=== PATIENT | female | born 1955 | race Caucasian/White ===

== ENCOUNTER 2018-12-12 20:52 | Emergency (ER) | payer MEDICAID ==
[~2018-12-12] VITALS: Ht 152.4 cm; Wt 55.8 kg
[2018-12-12 22:15] VITALS: BP 111/60
--- NOTE | 2018-12-12 22:15 | NUR ---
PT BIBSELF C/O MIDDLE BACK PAIN. -TRAUMA,-HEAVY LIFTING, +LEFT FLANK PAIN -DYSURIA,-HEMATURIA, +PAIN WHILE AMBULATING. PT ON MONITOR IN BED 9. NAD NOTED. RESP EVEN AND UNLABORED. WILL CONTINUE TO MONITOR.
[2018-12-12] MEDS ORDERED: KETOROLAC TROMETHAMINE INJ 30 MG/ML VIAL IV ONE (23:00)
[2018-12-12] MEDS ORDERED: IV NS 0.9% 1,000 ML BAG IV ONE (23:00)
[2018-12-12 23:05] LABS: APPEARANCE,URINE Clear (CLEAR); BILIRUBIN,URINE Negative (NEGATIVE); BLOOD, URINE Negative Ery/uL (NEGATIVE); COLOR,URINE Yellow (YELLOW); KETONES,URINE Negative (NEGATIVE); LEUKOCYTE ESTERASE ,URINE Negative (NEGATIVE); NITRITE, URINE Negative (NEGATIVE); PH,URINE 5.5 (5.0-8.0); PROTEIN,URINE Negative (NEGATIVE); UGLUCOSE Negative (NEGATIVE)
[2018-12-12] MEDS ORDERED: KETOROLAC TROMETHAMINE INJ 30 MG/ML VIAL ONE (23:13)
[2018-12-12 23:14] LABS: BASOPHILS # (AUTO) 0.1 /CMM (0.0-0.2); EOSINOPHILS % (AUTO) 4.1 % (0.0-6.0); HEMATOCRIT 37 % (33-45); HEMOGLOBIN 12.9 g/dL (11.5-14.8); LYMPHOCYTES # (AUTO) 2.5 /CMM (0.8-4.8); LYMPHOCYTES % (AUTO) 39.8 % (20.0-44.0); MEAN CORPUSCULAR HGB CONC 35 g/dl (31.0-36.0); MEAN CORPUSCULAR VOLUME 89 fL (82-100); MONOCYTES # (AUTO) 0.4 /CMM (0.1-1.30); NEUTROPHILS % (AUTO) 48.1 % (43.0-81.0); PLATELET COUNT (AUTO) 256 /CMM (150-450); RED BLOOD CELL COUNT(AUTO) 4.13 MIL/uL (4.0-5.2); WHITE BLOOD COUNT (AUTO) 6.3 K/uL (4.3-11.0)
--- NOTE | 2018-12-12 23:20 | NUR ---
WHEELED OUT VIA [facility] FOR CT SCAN
[2018-12-12 23:23] LABS: BACTERIA,URINE Few /HPF (None Seen); RBC,URINE 0-2 /HPF (0-2); SQUAMOUS EPITHELIAL CELL,UR Few /HPF (None Seen)
[2018-12-12 23:24] LABS: CALCIUM, SERUM 8.7 mg/dL (8.5-10.1); CREATININE 0.7 mg/dL (0.6-1.3)
[2018-12-12 23:30] LABS: ALBUMIN 3.8 g/dL (3.4-5.0); BILIRUBIN,TOTAL 0.2 mg/dL (0.2-1.0); TOTAL PROTEIN, SERUM 7.5 g/dL (6.4-8.2)
--- NOTE | 2018-12-13 00:58 | NUR ---
IV removed. Catheter intact and site benign. Pressure and 4x4 applied to site. No bleeding noted.Patient discharged to home in stable condition. Written and verbal after care instructions given. Patient verbalizes understanding of instruction. PT AMBULATORY WITH STEADY GAIT.
== END 2018-12-13 01:07 | disposition home or self-care (01) ==
LOC: ER 20:54
DX: M54.5 Low back pain (principal); R79.89 Other specified abnormal findings of blood chemistry; M10.9 Gout, unspecified; Z90.89 Acquired absence of other organs
CPT/HCPCS: 36415; 72131; 74176; 80048; 80076; 81001; 83690; 85025; 85730; 96374; 99284; J1885; J7030; 81000-TC

== ENCOUNTER 2019-06-11 02:15 | Emergency (ER) | payer MEDICARE, MEDICAID ==
[~2019-06-11] VITALS: Ht 157.5 cm; Wt 59.0 kg
--- NOTE | 2019-06-11 02:29 | NUR ---
BIBSELF WITH . TO ER BED 1. AAOX4. NO RESP DISTRESS. AMBULATORY. C/O L FLANK PAIN EXTENDING TO L GROIN X 4 DAYS WORST TODAY. PT RATES PAIN 8/10 ACHING AND THROBBING. PT REPORTS SHE HAD THIS SIMILAR PAIN FROM THE PAST. MD AT BEDSIDE FOR EVAL. ORDERS RECEIVED NOTED AND CARRIED OUT.
[2019-06-11] MEDS ORDERED: KETOROLAC TROMETHAMINE INJ 30 MG/ML VIAL IV ONE (02:30)
[2019-06-11] MEDS ORDERED: IV NS 0.9% 1,000 ML BAG IV ONE (02:30)
[2019-06-11] MEDS ORDERED: KETOROLAC TROMETHAMINE 15 MG/ML VIAL ONE (02:32)
--- NOTE | 2019-06-11 02:45 | NUR ---
IV LINE OBATINED ON L AC 20G. BLOOD DRAWN, URINE COLLECTED AND GIVEN TO AC[employer]EDITED F[employer] MANAGER AT BEDSIDE.
[2019-06-11 02:51] LABS: BASOPHILS # (AUTO) 0.1 /CMM (0.0-0.2); BASOPHILS % (AUTO) 1.4 % (0.0-2.0); CALCIUM, SERUM 8.7 mg/dL (8.5-10.1); CREATININE 0.6 mg/dL (0.6-1.3); HEMATOCRIT 37 % (33-45); HEMOGLOBIN 12.5 g/dL (11.5-14.8); LYMPHOCYTES # (AUTO) 1.7 /CMM (0.8-4.8); LYMPHOCYTES % (AUTO) 31.9 % (20.0-44.0); MEAN CORPUSCULAR HGB CONC 34 g/dl (31.0-36.0); MEAN CORPUSCULAR VOLUME 90 fL (82-100); MONOCYTES # (AUTO) 0.4 /CMM (0.1-1.30); MONOCYTES % (AUTO) 7.6 % (2.0-12.0); NEUTROPHILS # (AUTO) 3.1 /CMM (1.8-8.9); NEUTROPHILS % (AUTO) 57.1 % (43.0-81.0); PLATELET COUNT (AUTO) 270 /CMM (150-450); POTASSIUM 3.7 mmol/L (3.5-5.1); RED BLOOD CELL COUNT(AUTO) 4.09 MIL/uL (4.0-5.2); WHITE BLOOD COUNT (AUTO) 5.4 K/uL (4.3-11.0)
[2019-06-11] MEDS ORDERED: CT SWABBABLE VALVE TRANS SET 1 EA INFUS.SET MC ONE (02:58)
[2019-06-11] MEDS ORDERED: IOHEXOL-300 100 ML VIAL IV ONE (02:58)
[2019-06-11] MEDS ORDERED: IV NS 0.9% 250 ML IV ONE (02:59)
--- NOTE | 2019-06-11 03:16 | NUR ---
BACK FROM RADIOLOGY
[2019-06-11] MEDS ORDERED: IV NS 0.9% 1,000 ML IV PRN (04:00)
[2019-06-11 04:38] LABS: APPEARANCE,URINE Clear (CLEAR); BILIRUBIN,URINE Negative (NEGATIVE); BLOOD, URINE Trace-intact Ery/uL (NEGATIVE); COLOR,URINE Yellow (YELLOW); KETONES,URINE Negative (NEGATIVE); LEUKOCYTE ESTERASE ,URINE Trace (NEGATIVE); NITRITE, URINE Negative (NEGATIVE); PROTEIN,URINE Negative (NEGATIVE); UGLUCOSE Negative (NEGATIVE); UROBILINOGEN,URINE 0.2 EU/dL (0.2)
[2019-06-11] MEDS ORDERED: CEPHALEXIN MONOHYDRATE 500 MG CAPSULE PO ONE ×2 (04:54→05:00)
--- NOTE | 2019-06-11 05:02 | NUR ---
Patient discharged to home in stable condition. Written and verbal after care instructions given. Patient verbalizes understanding of instruction.IV removed. Catheter intact and site benign. Pressure and 4x4 applied to site. No bleeding noted. Pt ambulatory with a steady gait
[2019-06-11 05:04] VITALS: BP 111/65
[2019-06-11 05:17] LABS: BACTERIA,URINE None seen /HPF (None Seen); RBC,URINE 0-2 /HPF (0-2); SQUAMOUS EPITHELIAL CELL,UR Few /HPF (None Seen); WBC,URINE 0-2 /HPF (0-3)
== END 2019-06-11 05:04 | disposition home or self-care (01) ==
LOC: ER 02:18
DX: N12 Tubulo-interstitial nephritis, not specified as acute or chronic (principal); M10.9 Gout, unspecified; Z90.89 Acquired absence of other organs
CPT/HCPCS: 36415; 74177; 80048; 81001; 85025; 96374; 99284; J1885; J7030; J7050; Q9967; 81000-TC

== ENCOUNTER 2022-02-04 22:31 | Emergency (ER) | payer MEDICARE, OTHER ==
[~2022-02-04] VITALS: Ht 165.1 cm; Wt 58.1 kg
--- NOTE | 2022-02-04 22:38 | NUR ---
BIBS C/O LOWER ABDOMINAL PAIN X1DAY. PATIENT ALERT AND ORIENTED X3. AMBULATORY WITH NON LABORED BREATHING, IN BED 09 AWAITING MD ZAYAS.
--- NOTE | 2022-02-04 22:42 | NUR ---
URINE COLLECTED AND SENT TO LAB
[2022-02-04] MEDS ORDERED: ONDANSETRON HCL/PF 4 MG/2 ML VIAL ONE (22:48)
[2022-02-04] MEDS ORDERED: KETOROLAC TROMETHAMINE INJ 30 MG/ML VIAL ONE (22:48)
[2022-02-04] MEDS ORDERED: KETOROLAC TROMETHAMINE INJ 30 MG/ML VIAL IV ONE (23:00)
[2022-02-04] MEDS ORDERED: IV NS 0.9% 1,000 ML BAG IV ONE (23:00)
[2022-02-04] MEDS ORDERED: ONDANSETRON HCL/PF 4 MG/2 ML VIAL IVP ONE (23:00)
--- NOTE | 2022-02-04 23:03 | NUR ---
RFA #18G S/L; PATENT AND INTACT. BLOOD COLLECTED AND GIVEN TO LAB.
[2022-02-04 23:09] LABS: BASOPHILS % (AUTO) 0.6 % (0.0-2.0); HEMATOCRIT 37 % (33-45); HEMOGLOBIN 12.7 g/dL (11.5-14.8); LYMPHOCYTES # (AUTO) 1.9 K/uL (0.8-4.8); LYMPHOCYTES % (AUTO) 28.6 % (20.0-44.0); MEAN CORPUSCULAR HGB CONC 35 g/dl (31.0-36.0); MEAN CORPUSCULAR VOLUME 90 fL (82-100); MONOCYTES # (AUTO) 0.4 K/uL (0.1-1.30); NEUTROPHILS % (AUTO) 59.8 % (43.0-81.0); PLATELET COUNT (AUTO) 268 K/uL (150-450); RED BLOOD CELL COUNT(AUTO) 4.06 MIL/uL (4.0-5.2); WHITE BLOOD COUNT (AUTO) 6.8 K/uL (4.3-11.0)
[2022-02-04 23:10] LABS: BILIRUBIN,URINE NEGATIVE (NEGATIVE); COLOR,URINE DARK YELLOW (YELLOW); LEUKOCYTE ESTERASE ,URINE TRACE (NEGATIVE); NITRITE, URINE NEGATIVE (NEGATIVE); PH,URINE 5.5 (5.0-8.0); PROTEIN,URINE 100 mg/dl (NEGATIVE); UGLUCOSE NEGATIVE (NEGATIVE); UROBILINOGEN,URINE 0.2 EU/dL (0.2)
[2022-02-04 23:27] LABS: ALBUMIN 3.7 g/dL (3.4-5.0); BILIRUBIN,DIRECT 0.1 mg/dL (0.0-0.2); BILIRUBIN,TOTAL 0.4 mg/dL (0.2-1.0); CREATININE 0.8 mg/dL (0.6-1.3); POTASSIUM 3.8 mmol/L (3.5-5.1); TOTAL PROTEIN, SERUM 7.4 g/dL (6.4-8.2)
--- NOTE | 2022-02-04 23:29 | NUR ---
PT TAKEN TO CT VIA [facility]
[2022-02-04 23:34] LABS: CALCIUM, SERUM 8.9 mg/dL (8.5-10.1)
--- NOTE | 2022-02-04 23:43 | NUR ---
PT RETURNED TO ER BED [address]
--- NOTE | 2022-02-05 01:45 | NUR ---
Patient does not wish to proceed with medical care recommended by Dr. Pelletier and did not want to wait for CT result. Patient given information related to possible complications, up to and including , which could occur as a result of leaving the hospital at this time. Patient verbalizes understanding of risks involved due to leaving against medical advice. Patient has refused to sign AMA form. PT's daughter will citrus picker pt for PT to leave AMA.
[2022-02-05 01:47] VITALS: BP 130/61
--- NOTE | 2022-02-05 01:47 | NUR ---
IV removed. Catheter intact and site benign. Pressure and 4x4 applied to site. No bleeding noted.
[2022-02-05 07:14] LABS: RBC,URINE 51-80 /HPF (0-2)
[2022-02-05 07:15] LABS: BACTERIA,URINE Moderate /HPF (None Seen); MUCUS,URINE Moderate /LPF (None Seen); SQUAMOUS EPITHELIAL CELL,UR Moderate /HPF (None Seen)
== END 2022-02-05 01:47 | disposition left against medical advice (07) ==
LOC: ER 22:40
DX: R10.9 Unspecified abdominal pain (principal); Z90.89 Acquired absence of other organs
CPT/HCPCS: 36415; 74176; 80048; 80076; 81001; 83690; 85025; 85730; 87086; 96361; 96374; 96375; 99284; J1885; J2405; J7030